=== PATIENT | male | born 1930 | race Caucasian/White ===

== ENCOUNTER 2017-03-26 23:58 | Inpatient (IN) | payer MEDICARE, OTHER ==
[~2017-03-26] VITALS: Ht 177.8 cm; Wt 130.7 kg
[2017-03-27 00:45] LABS: BASOPHILS % (AUTO) 0.7 % (0.0-5.0); EOSINOPHILS % (AUTO) 3.1 % (0.0-8.0); LYMPHOCYTES % (AUTO) 9.4 % (21.0-51.0); MEAN CORPUSCULAR HGB CONC 33.9 g/dL (32.0-36.0); MEAN CORPUSCULAR VOLUME 94.3 fL (79-99); MONOCYTES % (AUTO) 9.3 % (3.0-13.0); NEUTROPHILS % (AUTO) 77.5 % (40.0-77.0); PLATELET COUNT (AUTO) 229 K/uL (130-400); RED BLOOD CELL COUNT(AUTO) 3.92 MIL/uL (4.50-6.20)
[2017-03-27 00:50] LABS: INR 1.02 (0.85-1.15); PROTHROMBIN TIME 10.7 SEC (9.6-11.6)
[2017-03-27 00:52] LABS: CREATININE 1.7 mg/dL (0.5-1.5); POTASSIUM 3.7 mmol/L (3.5-5.1)
[2017-03-27 00:59] LABS: ALBUMIN 3.3 g/dL (3.5-5.0); BILIRUBIN,DIRECT 0.1 mg/dL (0.0-0.3); BILIRUBIN,TOTAL 0.3 mg/dL (0.2-1.0); TOTAL PROTEIN, SERUM 6.8 g/dL (6.0-8.3)
[2017-03-27] MEDS ORDERED: ONDANSETRON HCL 4 MG/2 ML VIAL ONE (01:17)
[2017-03-27] MEDS: SODIUM CHLORIDE 0.9% 1000ML 1,000 ML IV SCH (02:06)
[2017-03-27] MEDS ORDERED: ONDANSETRON HCL 4 MG/2 ML VIAL IV PRN (02:15)
[2017-03-27] MEDS ORDERED: HYDRALAZINE HCL 20 MG/ML VIAL IV PRN (02:15)
[2017-03-27] MEDS ORDERED: OCTREOTIDE ACETATE 1,000 MCG in SODIUM CHLORIDE 0.9% 95 ML IV SCH (02:15)
[2017-03-27] MEDS ORDERED: ACETAMINOPHEN 325 MG TAB PO PRN (02:15)
[2017-03-27] MEDS ORDERED: SODIUM CHLORIDE 0.9% 1000ML 1,000 ML IV ONE (04:43)
[2017-03-27] MEDS ORDERED: OCTREOTIDE ACETATE 100 MCG/ML AMP ONE (04:56)
[2017-03-27] MEDS ORDERED: OCTREOTIDE ACETATE 200 MCG/ML 5 ML VIAL ONE (05:23)
[2017-03-27 05:37] LABS: APPEARANCE,URINE Clear (CLEAR); BILIRUBIN,URINE Negative (NEGATIVE); COLOR,URINE Yellow (YELLOW); GLUCOSE, URINE (UA) Negative (NEGATIVE); KETONES,URINE Negative (NEGATIVE); LEUKOCYTE ESTERASE ,URINE Negative (NEGATIVE); NITRATE,URINE Negative (NEGATIVE); OCCULT BLOOD,URINE Negative (NEGATIVE); PH,URINE 5.5 (5.0-8.0); PROTEIN,URINE Negative (NEGATIVE)
[2017-03-27] MEDS ORDERED: ATOR40TA69 PO (09:07)
[2017-03-27] MEDS ORDERED: LOSA25TA21 PO (09:07)
[2017-03-27] MEDS ORDERED: CHOL20004 PO (09:07)
[2017-03-27] MEDS ORDERED: MULT-1203 PO (09:07)
[2017-03-27] MEDS ORDERED: FURO20TA6 PO (09:07)
[2017-03-27] MEDS ORDERED: ASPI-555 PO (09:07)
[2017-03-27] MEDS ORDERED: METO25TA6 PO (09:07)
[2017-03-27] MEDS ORDERED: APIX2.5T PO (09:07)
[2017-03-27] MEDS ORDERED: GABA-531 PO (09:07)
[2017-03-27] MEDS ORDERED: SOTA120T PO (09:07)
[2017-03-27] MEDS ORDERED: PANTOPRAZOLE SODIUM 80 MG in SODIUM CHLORIDE 0.9% 100 ML IV SCH (09:54)
[2017-03-27] MEDS ORDERED: GABAPENTIN 300 MG CAPSULE ONE (13:59)
[2017-03-27] MEDS ORDERED: LACTULOSE 20 GM/30 ML UDCUP ONE (14:52)
[2017-03-27] MEDS ORDERED: LACTULOSE 20 GM/30 ML UDCUP PO SCH (15:59)
[2017-03-27] MEDS ORDERED: MAGNESIUM CITRATE 296 ML SOLUTION PO SCH (16:00)
[2017-03-27] MEDS ORDERED: MAGNESIUM CITRATE 296 ML SOLUTION ONE (16:02)
[2017-03-27] MEDS ORDERED: PEG 3350/NA SULF,BICARB,CL/KCL 4000 ML SOLN PO SCH (17:00)
[2017-03-27] MEDS ORDERED: BISACODYL 5 MG TABLET.DR PO SCH (18:00)
[2017-03-27] MEDS ORDERED: BISACODYL 5 MG TABLET.DR PO ONE (18:15)
[2017-03-27] MEDS ORDERED: ATORVASTATIN CALCIUM 40 MG TABLET PO SCH (21:00)
[2017-03-27] MEDS: SOTALOL HCL 60 MG PO SCH (21:00)
[2017-03-27 21:18] VITALS: BP 158/98
[2017-03-27] MEDS: GABAPENTIN 300 MG CAPSULE PO SCH ×2 (21:59→22:01)
[2017-03-27 23:41] VITALS: BP 157/73
[2017-03-28] VITALS (12 sets, daily range): BP systolic 116–147; BP diastolic 59–87
[2017-03-28] MEDS: SOTALOL HCL 80 MG TABLET PO SCH ×2 (01:49→10:08)
[2017-03-28] MEDS ORDERED: SODIUM CHLORIDE 0.9% 500 ML IV ONE (03:05)
[2017-03-28] MEDS ORDERED: OCTREOTIDE ACETATE 200 MCG/ML 5 ML VIAL ONE (03:08)
[2017-03-28] MEDS ORDERED: METOPROLOL TARTRATE 25 MG TAB PO SCH (09:00)
[2017-03-28] MEDS: SOTALOL HCL 60 MG PO SCH (09:00)
[2017-03-28] MEDS ORDERED: FUROSEMIDE 20 MG TABLET PO SCH (09:00)
[2017-03-28] MEDS ORDERED: LOSARTAN 50 MG TABLET PO SCH (09:00)
[2017-03-28] MEDS ORDERED: PROPOFOL 10 MG/ML 20ML VIAL IV ONE (09:01)
[2017-03-28] MEDS: SODIUM CHLORIDE 0.9% 1000ML 1,000 ML IV SCH ×3 (10:06→10:19)
[2017-03-28] MEDS: GABAPENTIN 300 MG CAPSULE PO SCH (10:12)
== END 2017-03-28 15:55 | disposition home or self-care (01) | DRG 391 ==
LOC: EDH 23:58 → EDHIP 03-27 02:06 → 2AH 03-27 20:45
PROVIDERS: ADMIT Family Medicine; ATTEND Family Medicine
PROC: 0DBL8ZZ Excision of Transverse Colon, Via Natural or Artificial Opening Endoscopic (ICD-10-PCS; principal; 2017-03-28)
DX: K52.9 Noninfective gastroenteritis and colitis, unspecified (principal); K57.31 Diverticulosis of large intestine without perforation or abscess with bleeding; K55.21 Angiodysplasia of colon with hemorrhage; I48.91 Unspecified atrial fibrillation; D62 Acute posthemorrhagic anemia; Z68.41 Body mass index [BMI] 40.0-44.9, adult; E66.9 Obesity, unspecified; E78.5 Hyperlipidemia, unspecified; I10 Essential (primary) hypertension; K64.1 Second degree hemorrhoids; D12.3 Benign neoplasm of transverse colon; K62.7 Radiation proctitis; Z96.653 Presence of artificial knee joint, bilateral; Z95.5 Presence of coronary angioplasty implant and graft; Z95.0 Presence of cardiac pacemaker; Z92.3 Personal history of irradiation; Z87.891 Personal history of nicotine dependence; Z86.79 Personal history of other diseases of the circulatory system; Z85.46 Personal history of malignant neoplasm of prostate; Z88.0 Allergy status to penicillin; Z88.7 Allergy status to serum and vaccine; Z88.8 Allergy status to other drugs, medicaments and biological substances; Z83.3 Family history of diabetes mellitus; Z82.49 Family history of ischemic heart disease and other diseases of the circulatory system
CPT/HCPCS: 36415; 80048; 80076; 81003; 82270; 82550; 83690; 84484; 85025; 85610; 85730; 86677; 86850; 86900; 86901; 88305; 93005; J2354; J2405; J2704; J7030

== ENCOUNTER 2017-04-08 08:07 | Inpatient (IN) | payer MEDICARE, OTHER ==
[~2017-04-08] VITALS: Ht 177.8 cm; Wt 128.0 kg
[2017-04-08] VITALS (20 sets, daily range): BP systolic 79–136; BP diastolic 33–67
[~2017-04-08 08:07] MED LIST: ASPI-555 PO; ATOR40TA69 PO; CHOL20004 PO; FURO20TA6 PO; GABA-531 PO; LOSA25TA21 PO; METO25TA6 PO; MULT-1203 PO; SOTA120T PO
[2017-04-08 08:36] LABS: BASOPHILS % (AUTO) 1.3 % (0.0-5.0); LYMPHOCYTES % (AUTO) 16.1 % (21.0-51.0); MEAN CORPUSCULAR HEMOGLOBIN 31.4 pg (27.0-33.0); MEAN CORPUSCULAR HGB CONC 34.1 g/dL (32.0-36.0); MEAN CORPUSCULAR VOLUME 91.9 fL (79-99); MONOCYTES % (AUTO) 6.9 % (3.0-13.0); NEUTROPHILS % (AUTO) 72.7 % (40.0-77.0); PLATELET COUNT (AUTO) 319 K/uL (130-400); RED BLOOD CELL COUNT(AUTO) 3.37 MIL/uL (4.50-6.20); RED CELL DISTRIBUTION WIDTH 13.2 % (11.0-15.5); WHITE BLOOD COUNT (AUTO) 12.3 K/uL (4.8-10.8)
[2017-04-08 08:47] LABS: CREATININE 2.2 mg/dL (0.5-1.5)
[2017-04-08 08:52] LABS: ALBUMIN 2.6 g/dL (3.5-5.0); BILIRUBIN,TOTAL 0.3 mg/dL (0.2-1.0); TOTAL PROTEIN, SERUM 5.7 g/dL (6.0-8.3)
[2017-04-08 08:53] LABS: INR 1.12 (0.85-1.15); PARTIAL THROMBOPLASTIN TIME 28.4 SEC (26.3-35.5); PROTHROMBIN TIME 11.7 SEC (9.6-11.6)
[2017-04-08] MEDS ORDERED: ONDANSETRON HCL 4 MG/2 ML VIAL ONE (09:40)
[2017-04-08 11:01] LABS: % IRON SATURATION 63.7 % (30-44); FERRITIN 24 ng/mL (30-400); IRON, SERUM 158 mcg/dL (65-175); TOTAL IRON BINDING CAPACITY 248 mcg/dL (250-450)
[2017-04-08 11:05] LABS: RETICULOCYTE % (AUTO) 1.27 % (0.42-2.23)
[2017-04-08] MEDS: SOTALOL 120 MG PO SCH ×2 (11:28→21:00)
[2017-04-08] MEDS: GABAPENTIN 300 MG CAPSULE PO SCH ×2 (14:00→21:00)
[2017-04-08] MEDS: SODIUM CHLORIDE 0.9% 1000ML 1,000 ML IV SCH (15:00)
[2017-04-08] MEDS ORDERED: NOREPINEPHRINE 4MG/NS 250ML 250 ML IV PRN (18:00)
[2017-04-08 18:15] LABS: HEMATOCRIT 24.6 % (42-54)
[2017-04-08] MEDS ORDERED: SODIUM CHLORIDE 0.9% 250 ML IV ONE (20:10)
[2017-04-08] MEDS: FAMOTIDINE/PF 20 MG/2 ML VIAL IV SCH (21:13)
[2017-04-08] MEDS: HUMAN PROTHROMBIN COMPLX(PCC) 500 UNIT KIT IV SCH (22:30)
[2017-04-09] VITALS (21 sets, daily range): BP systolic 101–139; BP diastolic 32–69
[2017-04-09] MEDS: SODIUM CHLORIDE 0.9% 1000ML 1,000 ML IV SCH ×2 (02:38→19:02)
[2017-04-09 03:06] LABS: ALBUMIN 2.2 g/dL (3.5-5.0); BILIRUBIN,TOTAL 0.5 mg/dL (0.2-1.0); CREATININE 2.1 mg/dL (0.5-1.5); POTASSIUM 4.2 mmol/L (3.5-5.1); TOTAL PROTEIN, SERUM 4.9 g/dL (6.0-8.3)
[2017-04-09 03:15] LABS: INR 1.14 (0.85-1.15); PARTIAL THROMBOPLASTIN TIME 28.5 SEC (26.3-35.5); PROTHROMBIN TIME 11.9 SEC (9.6-11.6)
[2017-04-09 03:27] LABS: MEAN CORPUSCULAR HGB CONC 34.8 g/dL (32.0-36.0); MEAN CORPUSCULAR VOLUME 91.8 fL (79-99); PLATELET COUNT (AUTO) 262 K/uL (130-400); RED BLOOD CELL COUNT(AUTO) 2.61 MIL/uL (4.50-6.20); RED CELL DISTRIBUTION WIDTH 13.4 % (11.0-15.5); WHITE BLOOD COUNT (AUTO) 20.1 K/uL (4.8-10.8)
[2017-04-09 04:17] LABS: BAND NEUTROPHILS % (MANUAL) 6 % (0-2); LYMPHOCYTES % (MANUAL) 19 % (22-44); MONOCYTES % (MANUAL) 1 % (2-9); SEGMENTED NEUTROPHILS % 74 % (40-70)
[2017-04-09 04:18] LABS: MAN.DIFF COMMENT-IMPRESSION MANUAL DIFFERENTIAL; PLATELET MORPHOLOGY COMMENT ADEQUATE
[2017-04-09 08:15] LABS: HEMATOCRIT 24.5 % (42-54)
[2017-04-09] MEDS: FAMOTIDINE/PF 20 MG/2 ML VIAL IV SCH ×2 (08:46→20:38)
[2017-04-09] MEDS: SOTALOL 120 MG PO SCH ×2 (08:46→20:40)
[2017-04-09] MEDS: GABAPENTIN 300 MG CAPSULE PO SCH ×3 (08:46→20:39)
[2017-04-09] MEDS: ACETYLCYSTEINE 600 MG CAPSULE PO SCH ×2 (09:48→20:41)
[2017-04-09] MEDS ORDERED: IOPAMIDOL-370 100 ML VIAL IV ONE (10:40)
[2017-04-09 14:55] LABS: HEMATOCRIT 23.6 % (42-54)
[2017-04-09] MEDS ORDERED: AZTREONAM 1 GM in SODIUM CHLORIDE 0.9% 50 ML IV SCH (15:45)
[2017-04-09] MEDS: AZTREONAM 1 GM VIAL IVP SCH (16:24)
[2017-04-09] MEDS: PSYLLIUM SEED 1 EACH PACKET PO SCH (17:17)
[2017-04-09 18:36] LABS: HEMATOCRIT 27.1 % (42-54)
[2017-04-09] MEDS ORDERED: METRONIDAZOLE 500MG/100ML BAG 100 ML IVPB ONE (20:29)
[2017-04-09] MEDS: HUMAN PROTHROMBIN COMPLX(PCC) 500 UNIT KIT IV SCH (20:38)
[2017-04-09] MEDS: METRONIDAZOLE 500MG/100ML BAG 100 ML IV SCH (21:18)
[2017-04-10] VITALS (21 sets, daily range): BP systolic 94–160; BP diastolic 48–83
[2017-04-10 00:41] LABS: HEMATOCRIT 23.9 % (42-54)
[2017-04-10] MEDS: AZTREONAM 1 GM VIAL IVP SCH ×2 (03:43→14:43)
[2017-04-10 04:13] LABS: HEMATOCRIT 23.7 % (42-54); MEAN CORPUSCULAR HEMOGLOBIN 31.7 pg (27.0-33.0); MEAN CORPUSCULAR HGB CONC 34.6 g/dL (32.0-36.0); MEAN CORPUSCULAR VOLUME 91.6 fL (79-99); PLATELET COUNT (AUTO) 209 K/uL (130-400); RED BLOOD CELL COUNT(AUTO) 2.58 MIL/uL (4.50-6.20); RED CELL DISTRIBUTION WIDTH 13.6 % (11.0-15.5)
[2017-04-10 04:54] LABS: CREATININE 1.8 mg/dL (0.5-1.5); MAGNESIUM 1.9 mg/dL (1.80-2.40)
[2017-04-10] MEDS: METRONIDAZOLE 500MG/100ML BAG 100 ML IV SCH ×3 (06:03→22:07)
[2017-04-10] MEDS: PSYLLIUM SEED 1 EACH PACKET PO SCH ×3 (06:05→17:37)
[2017-04-10] MEDS: FAMOTIDINE/PF 20 MG/2 ML VIAL IV SCH ×2 (08:36→20:49)
[2017-04-10] MEDS: ACETYLCYSTEINE 600 MG CAPSULE PO SCH ×2 (08:36→20:49)
[2017-04-10] MEDS: SOTALOL 120 MG PO SCH ×2 (08:38→20:20)
[2017-04-10] MEDS: GABAPENTIN 300 MG CAPSULE PO SCH ×3 (08:38→15:00)
[2017-04-10 12:31] LABS: HEMATOCRIT 27.7 % (42-54)
[2017-04-10] MEDS: SODIUM CHLORIDE 0.9% 1000ML 1,000 ML IV SCH (18:00)
[2017-04-10] MEDS ORDERED: LOSA25TA21 PO (18:44)
[2017-04-10] MEDS: HUMAN PROTHROMBIN COMPLX(PCC) 500 UNIT KIT IV SCH (20:51)
[2017-04-11] VITALS (23 sets, daily range): BP systolic 89–171; BP diastolic 39–78
[2017-04-11] MEDS: MAG HYDROX/AL HYDROX/SIMETH ES 30 ML SUSP UDCUP PO PRN (00:03)
[2017-04-11 03:43] LABS: MEAN CORPUSCULAR HEMOGLOBIN 32.2 pg (27.0-33.0); MEAN CORPUSCULAR HGB CONC 34.9 g/dL (32.0-36.0); MEAN CORPUSCULAR VOLUME 92.4 fL (79-99); PLATELET COUNT (AUTO) 254 K/uL (130-400); RED BLOOD CELL COUNT(AUTO) 2.13 MIL/uL (4.50-6.20); RED CELL DISTRIBUTION WIDTH 14.1 % (11.0-15.5); WHITE BLOOD COUNT (AUTO) 13.2 K/uL (4.8-10.8)
[2017-04-11 03:52] LABS: HEMATOCRIT 19.7 % (42-54)
[2017-04-11 03:54] LABS: INR 1.03 (0.85-1.15); PARTIAL THROMBOPLASTIN TIME 23.9 SEC (26.3-35.5); PROTHROMBIN TIME 10.8 SEC (9.6-11.6)
[2017-04-11] MEDS: AZTREONAM 1 GM VIAL IVP SCH ×2 (03:55→16:00)
[2017-04-11] MEDS: SODIUM CHLORIDE 0.9% 1000ML 1,000 ML IV SCH ×2 (03:56→18:27)
[2017-04-11 04:04] LABS: ALBUMIN 2.1 g/dL (3.5-5.0); BILIRUBIN,TOTAL 0.2 mg/dL (0.2-1.0); CREATININE 1.9 mg/dL (0.5-1.5); PHOSPHORUS 2.9 mg/dL (2.5-4.9); TOTAL PROTEIN, SERUM 4.9 g/dL (6.0-8.3)
[2017-04-11] MEDS: METRONIDAZOLE 500MG/100ML BAG 100 ML IV SCH ×3 (06:24→21:32)
[2017-04-11] MEDS: PSYLLIUM SEED 1 EACH PACKET PO SCH ×3 (07:30→17:00)
[2017-04-11] MEDS: GABAPENTIN 300 MG CAPSULE PO SCH ×3 (09:00→20:00)
[2017-04-11] MEDS: METOPROLOL TARTRATE 25 MG TAB PO SCH (09:00)
[2017-04-11] MEDS: ACETYLCYSTEINE 600 MG CAPSULE PO SCH ×2 (09:00→21:02)
[2017-04-11] MEDS: SOTALOL 120 MG PO SCH ×2 (09:00→21:04)
[2017-04-11] MEDS ORDERED: ONDANSETRON HCL 4 MG/2 ML VIAL ONE (09:06)
[2017-04-11 11:39] LABS: HEMATOCRIT 21.5 % (42-54)
[2017-04-11] MEDS: Losartan Potassium 12.5 MG PO SCH (17:00)
[2017-04-11 18:06] LABS: HEMATOCRIT 19.6 % (42-54)
[2017-04-11] MEDS ORDERED: SODIUM CHLORIDE 0.9% 500ML 500 ML IV ONE (18:12)
[2017-04-11] MEDS ORDERED: MIDAZOLAM HCL 1 MG/ML 2ML VIAL ONE ×2 (18:32)
[2017-04-11] MEDS ORDERED: MEPERIDINE-PF 50 MG/ML SYG ONE (18:32)
[2017-04-11] MEDS: HUMAN PROTHROMBIN COMPLX(PCC) 500 UNIT KIT IV SCH (20:00)
[2017-04-11] MEDS: PANTOPRAZOLE 40 MG/VIAL IVP SCH (21:01)
[2017-04-11 23:46] LABS: HEMATOCRIT 21.6 % (42-54)
[2017-04-12] VITALS (24 sets, daily range): BP systolic 94–177; BP diastolic 30–78
[2017-04-12] MEDS: AZTREONAM 1 GM VIAL IVP SCH ×2 (03:56→18:55)
[2017-04-12] MEDS: METRONIDAZOLE 500MG/100ML BAG 100 ML IV SCH ×3 (05:26→21:42)
[2017-04-12 06:16] LABS: HEMATOCRIT 22.6 % (42-54); MEAN CORPUSCULAR HEMOGLOBIN 30.5 pg (27.0-33.0); MEAN CORPUSCULAR VOLUME 89.6 fL (79-99); PLATELET COUNT (AUTO) 232 K/uL (130-400); RED BLOOD CELL COUNT(AUTO) 2.52 MIL/uL (4.50-6.20); RED CELL DISTRIBUTION WIDTH 15.8 % (11.0-15.5)
[2017-04-12 06:22] LABS: CREATININE 1.5 mg/dL (0.5-1.5); POTASSIUM 3.7 mmol/L (3.5-5.1)
[2017-04-12] MEDS: PANTOPRAZOLE 40 MG/VIAL IVP SCH ×2 (08:07→20:34)
[2017-04-12] MEDS: METOPROLOL TARTRATE 25 MG TAB PO SCH (08:07)
[2017-04-12] MEDS: ACETYLCYSTEINE 600 MG CAPSULE PO SCH ×2 (08:07→20:34)
[2017-04-12] MEDS: PSYLLIUM SEED 1 EACH PACKET PO SCH ×3 (08:08→17:00)
[2017-04-12] MEDS: SOTALOL 120 MG PO SCH ×2 (08:08→20:52)
[2017-04-12] MEDS: GABAPENTIN 300 MG CAPSULE PO SCH (08:10)
[2017-04-12] MEDS ORDERED: INSULIN HUMULIN R 100 UNIT/ML 3ML SQ SCH (11:30)
[2017-04-12 16:12] LABS: HEMATOCRIT 21.5 % (42-54)
[2017-04-12] MEDS ORDERED: WATER FOR INJECTION,STERILE 20 ML VIAL ONE (16:52)
[2017-04-12] MEDS: Losartan Potassium 12.5 MG PO SCH (17:00)
[2017-04-12] MEDS: HUMAN PROTHROMBIN COMPLX(PCC) 500 UNIT KIT IV SCH (19:18)
[2017-04-12] MEDS ORDERED: LOSARTAN 50 MG TABLET ONE (19:23)
[2017-04-13] VITALS (25 sets, daily range): BP systolic 93–161; BP diastolic 35–112
[2017-04-13 04:32] LABS: HEMATOCRIT 20.6 % (42-54)
[2017-04-13 04:37] LABS: CREATININE 1.5 mg/dL (0.5-1.5)
[2017-04-13] MEDS: METRONIDAZOLE 500MG/100ML BAG 100 ML IV SCH ×3 (05:08→22:38)
[2017-04-13] MEDS: AZTREONAM 1 GM VIAL IVP SCH ×2 (05:08→17:24)
[2017-04-13] MEDS: PSYLLIUM SEED 1 EACH PACKET PO SCH ×3 (07:42→17:24)
[2017-04-13] MEDS: ACETYLCYSTEINE 600 MG CAPSULE PO SCH ×2 (09:40→21:12)
[2017-04-13] MEDS: METOPROLOL TARTRATE 25 MG TAB PO SCH (09:40)
[2017-04-13] MEDS: FUROSEMIDE 10 MG/ML 4ML VIAL IV SCH ×2 (09:40→21:12)
[2017-04-13] MEDS: PANTOPRAZOLE 40 MG/VIAL IVP SCH ×2 (09:41→21:12)
[2017-04-13] MEDS: SOTALOL 120 MG PO SCH ×2 (09:41→21:20)
[2017-04-13 16:09] LABS: HEMATOCRIT 22.1 % (42-54)
[2017-04-13] MEDS: Losartan Potassium 12.5 MG PO SCH (17:00)
[2017-04-13] MEDS: HUMAN PROTHROMBIN COMPLX(PCC) 500 UNIT KIT IV SCH (22:30)
[2017-04-14] VITALS (12 sets, daily range): BP systolic 91–143; BP diastolic 49–78
[2017-04-14 04:07] LABS: HEMATOCRIT 21.2 % (42-54)
[2017-04-14 04:16] LABS: CREATININE 1.5 mg/dL (0.5-1.5); POTASSIUM 3.8 mmol/L (3.5-5.1)
[2017-04-14] MEDS: AZTREONAM 1 GM VIAL IVP SCH (05:06)
[2017-04-14] MEDS: METRONIDAZOLE 500MG/100ML BAG 100 ML IV SCH (05:06)
[2017-04-14] MEDS: GUAIFENESIN-DM 200/20 MG 10 ML PO PRN (05:18)
[2017-04-14] MEDS ORDERED: IRON SUCROSE COMPLEX 400 MG in SODIUM CHLORIDE 0.9% 250 ML IVP SCH (07:54)
[2017-04-14] MEDS ORDERED: PHARMACY COMMUNICATION MISC SCH (08:00)
[2017-04-14] MEDS ORDERED: COMPOUND IV MISC 1 EACH IVSOLN MISC PRN (08:00)
[2017-04-14] MEDS: PSYLLIUM SEED 1 EACH PACKET PO SCH ×3 (08:13→17:10)
[2017-04-14] MEDS: ACETYLCYSTEINE 600 MG CAPSULE PO SCH ×2 (09:08→21:06)
[2017-04-14] MEDS: METOPROLOL TARTRATE 25 MG TAB PO SCH (09:08)
[2017-04-14] MEDS: SOTALOL 120 MG PO SCH ×2 (09:09→21:06)
[2017-04-14] MEDS: PANTOPRAZOLE 40 MG/VIAL IVP SCH ×2 (09:22→21:06)
[2017-04-14] MEDS: ONDANSETRON HCL 4 MG/2 ML VIAL IVP PRN ×2 (13:50→17:10)
[2017-04-14 15:01] LABS: HEMATOCRIT 21.8 % (42-54)
[2017-04-14] MEDS: MAG HYDROX/AL HYDROX/SIMETH ES 30 ML SUSP UDCUP PO PRN (17:10)
[2017-04-14] MEDS: Losartan Potassium 12.5 MG PO SCH (17:15)
[2017-04-14] MEDS: HUMAN PROTHROMBIN COMPLX(PCC) 500 UNIT KIT IV SCH (22:30)
[2017-04-15 03:32] VITALS: BP 124/52
[2017-04-15 03:46] LABS: HEMATOCRIT 21.7 % (42-54)
[2017-04-15] MEDS: PSYLLIUM SEED 1 EACH PACKET PO SCH ×3 (06:46→17:31)
[2017-04-15 07:00] VITALS: BP 103/53
[2017-04-15] MEDS ORDERED: FUROSEMIDE 10 MG/ML 4ML VIAL IV SCH (09:30)
[2017-04-15] MEDS: SOTALOL 120 MG PO SCH ×2 (09:57→22:05)
[2017-04-15] MEDS: PANTOPRAZOLE 40 MG/VIAL IVP SCH ×2 (09:57→22:04)
[2017-04-15] MEDS: ACETYLCYSTEINE 600 MG CAPSULE PO SCH ×2 (09:57→22:04)
[2017-04-15] MEDS: METOPROLOL TARTRATE 25 MG TAB PO SCH (09:57)
[2017-04-15] MEDS: GUAIFENESIN-DM 200/20 MG 10 ML PO PRN ×2 (10:00→15:03)
[2017-04-15 11:00] VITALS: BP 113/54
[2017-04-15] MEDS: DOXYCYCLINE HYCLATE 100 MG TABLET PO SCH ×2 (15:03→22:04)
[2017-04-15 15:13] LABS: HEMATOCRIT 22.8 % (42-54)
[2017-04-15 16:00] VITALS: BP 109/46
[2017-04-15] MEDS: Losartan Potassium 12.5 MG PO SCH (17:00)
[2017-04-15] MEDS ORDERED: FUROSEMIDE 20 MG TABLET ONE (17:30)
[2017-04-15] MEDS ORDERED: FUROSEMIDE 40 MG TABLET ONE (17:32)
[2017-04-15] MEDS: FUROSEMIDE 40 MG TABLET PO SCH (17:33)
[2017-04-15 20:08] VITALS: BP 114/47
[2017-04-16] VITALS: BP 118/47
[2017-04-16 03:53] VITALS: BP 117/56
[2017-04-16 04:19] LABS: MEAN CORPUSCULAR HGB CONC 33.8 g/dL (32.0-36.0); MEAN CORPUSCULAR VOLUME 91.6 fL (79-99); NUCLEATED RED BLOOD CELLS 0.1 % (0.0-0.19); PLATELET COUNT (AUTO) 300 K/uL (130-400); WHITE BLOOD COUNT (AUTO) 7.6 K/uL (4.8-10.8)
[2017-04-16 04:27] LABS: CREATININE 1.9 mg/dL (0.5-1.5); POTASSIUM 3.5 mmol/L (3.5-5.1)
[2017-04-16 07:00] VITALS: BP 98/49
[2017-04-16] MEDS: ACETYLCYSTEINE 600 MG CAPSULE PO SCH (08:43)
[2017-04-16] MEDS: FUROSEMIDE 40 MG TABLET PO SCH (08:43)
[2017-04-16] MEDS: PANTOPRAZOLE 40 MG/VIAL IVP SCH (08:43)
[2017-04-16] MEDS: PSYLLIUM SEED 1 EACH PACKET PO SCH ×2 (08:44→11:30)
[2017-04-16] MEDS: DOXYCYCLINE HYCLATE 100 MG TABLET PO SCH (09:00)
[2017-04-16] MEDS ORDERED: FUROSEMIDE 40 MG TABLET PO SCH (09:00)
[2017-04-16] MEDS: SOTALOL 120 MG PO SCH (09:00)
[2017-04-16] MEDS: METOPROLOL TARTRATE 25 MG TAB PO SCH (09:00)
[2017-04-16] MEDS ORDERED: FURO20TA6 PO (10:15)
[2017-04-16 11:00] VITALS: BP 98/65
[2017-04-16] MEDS ORDERED: SODIUM CHLORIDE 0.9% 100 ML IV ONE (11:48)
[2017-04-16] MEDS ORDERED: FUROSEMIDE 10 MG/ML 4ML VIAL IV SCH (15:15)
[2017-04-16] MEDS ORDERED: FUROSEMIDE 10 MG/ML 4ML VIAL ONE (15:20)
[2017-04-16 15:30] VITALS: BP 105/50
[2017-04-16 16:00] VITALS: BP 105/50
== END 2017-04-16 19:40 | disposition home or self-care (01) | DRG 377 ==
LOC: EDH 08:07 → OBSVTOIN 09:58 → EDHIP 09:58 → 2AH 14:43 → 2BH 19:02 → 2CH 04-14 13:17
PROVIDERS: ADMIT Family Medicine; ATTEND Family Medicine
PROC: 0DJ08ZZ Inspection of Upper Intestinal Tract, Via Natural or Artificial Opening Endoscopic (ICD-10-PCS; principal; 2017-04-11)
PROC: 02HV33Z Insertion of Infusion Device into Superior Vena Cava, Percutaneous Approach (ICD-10-PCS; 2017-04-11)
PROC: 30233K1 Transfusion of Nonautologous Frozen Plasma into Peripheral Vein, Percutaneous Approach (ICD-10-PCS; 2017-04-11)
PROC: 30233N1 Transfusion of Nonautologous Red Blood Cells into Peripheral Vein, Percutaneous Approach (ICD-10-PCS; 2017-04-11)
DX: K29.71 Gastritis, unspecified, with bleeding (principal); R57.8 Other shock; N17.9 Acute kidney failure, unspecified; D68.69 Other thrombophilia; E11.22 Type 2 diabetes mellitus with diabetic chronic kidney disease; E11.51 Type 2 diabetes mellitus with diabetic peripheral angiopathy without gangrene; D62 Acute posthemorrhagic anemia; N18.3 Chronic kidney disease, stage 3 (moderate); I13.0 Hypertensive heart and chronic kidney disease with heart failure and stage 1 through stage 4 chronic kidney disease, or unspecified chronic kidney disease; I42.9 Cardiomyopathy, unspecified; I50.42 Chronic combined systolic (congestive) and diastolic (congestive) heart failure; Z68.41 Body mass index [BMI] 40.0-44.9, adult; E66.01 Morbid (severe) obesity due to excess calories; E78.5 Hyperlipidemia, unspecified; I25.10 Atherosclerotic heart disease of native coronary artery without angina pectoris; I48.2 Chronic atrial fibrillation; I71.4 Abdominal aortic aneurysm, without rupture; J44.9 Chronic obstructive pulmonary disease, unspecified; K55.20 Angiodysplasia of colon without hemorrhage; K64.8 Other hemorrhoids; R09.02 Hypoxemia; Z79.01 Long term (current) use of anticoagulants; Z85.46 Personal history of malignant neoplasm of prostate; Z86.79 Personal history of other diseases of the circulatory system; Z90.49 Acquired absence of other specified parts of digestive tract; Z95.0 Presence of cardiac pacemaker; Z88.0 Allergy status to penicillin; Z88.7 Allergy status to serum and vaccine; Z88.8 Allergy status to other drugs, medicaments and biological substances
CPT/HCPCS: 36415; 36430; 71045; 74021; 74174; 74176; 78278; 80048; 80053; 82270; 82607; 82728; 82746; 82948; 83605; 83735; 83880; 84100; 85014; 85018; 85025; 85027; 85378; 85384; 85610; 85730; 86677; 86850; 86900; 86901; 86922; 99152; 99153; A4218; A9512; C1894; C9113; J1756; J1940; J2175; J2250; J2405; J3490; J7030; J7040; P9016; Q9967

== ENCOUNTER 2017-04-18 10:06 | Emergency (ER) | payer MEDICARE ==
[~2017-04-18 10:06] MED LIST changes: -ASPI-555 PO; -METO25TA6 PO
[2017-04-18] MEDS ORDERED: IPRATROPIUM/ALBUTEROL SULFATE 3 ML SOLUTION IH ONE ×3 (10:52→10:53)
[2017-04-18 11:00] LABS: BASOPHILS % (AUTO) 1.3 % (0.0-5.0); EOSINOPHILS % (AUTO) 3.3 % (0.0-8.0); HEMATOCRIT 27.4 % (42-54); LYMPHOCYTES % (AUTO) 13.3 % (21.0-51.0); MEAN CORPUSCULAR HEMOGLOBIN 33.2 pg (27.0-33.0); MEAN CORPUSCULAR HGB CONC 35.7 g/dL (32.0-36.0); MONOCYTES % (AUTO) 15.6 % (3.0-13.0); NEUTROPHILS % (AUTO) 66.5 % (40.0-77.0); PLATELET COUNT (AUTO) 290 K/uL (130-400); RED BLOOD CELL COUNT(AUTO) 2.94 MIL/uL (4.50-6.20); RED CELL DISTRIBUTION WIDTH 16.5 % (11.0-15.5); WHITE BLOOD COUNT (AUTO) 7.7 K/uL (4.8-10.8)
[2017-04-18] MEDS ORDERED: METHYLPREDNISOLONE SOD SUCC 125MG/2ML VIAL ONE (11:03)
[2017-04-18 11:12] LABS: POTASSIUM 3.7 mmol/L (3.5-5.1)
[2017-04-18 11:27] LABS: ALBUMIN 2.7 g/dL (3.5-5.0); BILIRUBIN,TOTAL 0.4 mg/dL (0.2-1.0); CREATINE KINASE MB 0.5 ng/mL (0.5-3.6); TOTAL PROTEIN, SERUM 6.3 g/dL (6.0-8.3)
[2017-04-18 11:28] LABS: B-TYPE NATRIURETIC PEPTIDE 366 pg/mL (0-100)
[2017-04-18] MEDS ORDERED: FUROSEMIDE 10 MG/ML 4ML VIAL ONE (13:02)
== END 2017-04-18 15:45 | disposition home or self-care (01) ==
LOC: EDH 10:06
DX: E87.70 Fluid overload, unspecified (principal); J98.01 Acute bronchospasm; R06.00 Dyspnea, unspecified; I48.91 Unspecified atrial fibrillation; I25.10 Atherosclerotic heart disease of native coronary artery without angina pectoris; E78.5 Hyperlipidemia, unspecified; I10 Essential (primary) hypertension; Z90.49 Acquired absence of other specified parts of digestive tract; Z95.0 Presence of cardiac pacemaker; Z79.899 Other long term (current) drug therapy
CPT/HCPCS: 36415; 71045; 80053; 82550; 82553; 83880; 84484; 85025; 93005; 94640 ×3; 96374; 99285; J1940; J2930